=== PATIENT | female | born 1965 | race Two or more races ===

== ENCOUNTER 2020-12-29 08:33 | Outpatient (CLI) | payer OTHER | END 2020-12-29 08:49 | disposition home or self-care (01) | LOC: SONOGRAMA 08:33 → MAMO-SONO 09:45 | PROVIDERS: ATTEND Obstetrics & Gynecology Gynecology | DX: R93.89 Abnormal findings on diagnostic imaging of other specified body structures (principal); D25.0 Submucous leiomyoma of uterus ==